=== PATIENT | female | born 1960 | race Two or more races ===

== ENCOUNTER 2019-01-16 22:40 | Observation (INO) ==
[2019-01-16] MEDS ORDERED: ASPIRIN ONE (23:08)
--- NOTE | 2019-01-16 23:10 | DR.GENAD ---
HPI Time Seen Time Seen by Provider: 01/16/19 23:10 PCP Primary Care Physician: CEDRIC CAMPBELL Complaint/Symptoms Chief Complaint Doctors Comments: Patient is a 59 year old [place] woman who presents with chest pain. While at rest patient states that she had chest pain and that is substernal radiating downward. She describes it as moderate to severe in pain. She states that it lasted for a duration of approximately 10 minutes and self-resolved . She has had similar pain in the past when she had a cardiac Cath. Her family does not the known the results of that study they stated she did not have stent, but they are unsure bc is was ~ 10 yr ago in a [facility] ( they dont know the name) The patient had an similar episode last night at 11:00 PM that last for 10 minutes also. The pain is not present when patient arrives at Ed. Patient denies shortness of breath, abdominal pain, nausea, vomiting, fevers, and or other symptoms. PMHx IDDM2, HTN, HLD, and ACS. Chief Complaint:: CHEST PAIN BEGAN YESTERDAY AFTERNOON; TODAY PATIENT CONTINUES TO COMPLAIN; PATIENT'S DIL REPORTS PATIENT BEING DIAPHORETIC. PATIENT SAYS SHE HURTS FROM THROAT DOWN TO CHEST. Self Treatment fo Chief Complaint: NO PRIOR TREATMENT Nurses notes reviewed Nurses Notes Review: Yes Source History Provided: Family Member Mode of Arrival Mode of Arrival: Ambulatory Timing Onset of Chief Complaint: 01/15/19 PMH PMH Past Medical History: Yes Past Medical History: Coronary Artery Disease, Dyslipidemia, GERD and Hypertension Past Surgical History: No Family History History of Family Medical Conditions: No Social History Alcohol Use: None Do you use any recreational Drugs:: No Lives Where: Home infectious screening In the last 2 months have you had wt loss of >10#?: NO Have you had fever, night sweats or hemotysis?: No Have you traveled outside the country in the last 6 months?: No Isolation: Standard ROS Review of Systems Constitutional: Diaphoresis (resolved ) Eyes: No Symptoms Reported ENTM: No Symptoms Reported Respiratoy: No Symptoms Reported Cardiovascular: Chest Pain (resolved ) Gastrointestinal/Abdominal: No Symptoms Reported Genitourinary: No Symptoms Reported Neurological: No Symptoms Reported Musculoskeletal: No Symptoms Reported Integumentary: No Symptoms Reported Hematologic/Lymphatic: No Symptoms Reported Endocrine: No Symptoms Reported Psychiatric: No Symptoms Reported All Other Systems: Reviewed and Negative PE Vital Signs Vitals: Temperature 97.5 F Pulse Rate [Apical] 60 Pulse Rate 85 Respiratory Rate 22 Blood Pressure [Left Arm] 161/70 Blood Pressure 186/81 O2 Sat by Pulse Oximetry 96 General Limitations: No Limitations General Appearance: Alert and In No Apparent Distress Head Head Exam: Normal Inspection, Atraumatic and Normocephalic Eyes Eye exam: Normal Appearance and EOMI ENT ENT Exam: Normal Exam, Normal Oropharynx, Normal External Ear Exam and Mucous Membranes Moist Nose Exam: Normal Nose Exam Mouth Exam: Normal Inspection Throat Exam: Normal Inspection Neck Neck Exam: Normal Inspection and Full ROM Chest Chest Inspection: Normal Inspection and Symmetric Chest Wall Rise Respiratory Respiratory Exam: Normal Lung Sounds Bilat, Accessory Muscle Use and Chest Wall Tenderness Respiratory Exam: Bilateral: Clear to Auscultation Cardiovascular Cardiovascular Exam: Regular Rate and Normal Rhythm Abdominal Exam Abdominal Exam: Normal Inspection, Normal Bowel Sounds and Soft Extremities Extremities Exam: Normal Inspection and Full ROM Neurologic Neurological Exam: Alert and Oriented X3 Psychiatric Psychiatric Exam: Normal Affect and Normal Mood Skin Skin Exam: Warm, Dry, Intact and Normal Color MDM Additional Information Additional Information Obtained From: Family Differential Diagnosis Differential Diagnosis: ACS VS [place] vs Costochondritis vs chest wall pain COURSE Treatment Treatment: Patient is a 59 year old female with unstable angina with several cardiac risk factors IDDM/HLD/uncontrolled HTN/ACS. This is the second episode in 2 days that occurred at rest. Patient has cardiac history with catherization approximately 10 years ago the up come is unknown per patient and family. Patient takes daily aspirin, so aspirin was held. Patient's blood pressure was in the 180sbp on arrival, it improved. Pt admitted for ACS r/o. Elevated WBC likely reactive, afebrile not symptomatic, will treat in w/ AM labs. CXR discussed with family pt has no CHF symptoms. Reevaluation 1st: Unchanged (00:18 pt stable no pain) 2nd: Improved (BP decreased pt stable in no pain, 2:36 ) 3rd: Unchanged (03:03 plan discussed with family and pt about admission) Consultation Called: 02:45 Call Returned: 02:45 Consultation Comments: Dr Daigle accepted admission after discussion of case. Education/Counseling Education/Counseling: Patient, Family, Education and Counseling Educated On: Treatment, Diagnosis, Prognosis and Needs for Follow Up ROR Labs Reviewed Laboratory Results Reviewed?: Yes Result Diagrams: 01/16/19 23:25 01/16/19 23:25 Laboratory: WBC 10.3 X10^3/uL (3.6-10.0) H 01/16/19 23:25 RBC 4.93 X10^6/uL (3.5-5.4) 01/16/19 23:25 Hgb 10.5 g/dL (12.0-16.0) L 01/16/19 23: Hct 34.2 % (36.0-47.0) L 01/16/19 23:25 MCV 69.3 fL (80.0-100.0) L 01/16/19 23:25 MCH 21.4 pg (27.0-34.0) L 01/16/19 23: MCHC 30.8 g/dL (33.0-35.0) L 01/16/19 23: RDW 18.9 % (11.6-16.5) H 01/16/19 23: Plt Count 270 X10^3/uL (150.0-450.0) 01/16/19 23:25 Plt Count Comment Adequate (ADEQUATE) 01/16/19 23: MPV 9.5 fL (7.4-11.0) 01/16/19 23:25 Neut % (Auto) 34.9 % (42.0-75.0) L 01/16/19 23: Lymph % (Auto) 45.2 % (21.0-51.0) 01/16/19 23:25 [place] % (Auto) 8.8 % (0.0-13.0) 01/16/19 23:25 Eos % (Auto) 10.1 % (0.9-2.9) H 01/16/19 23:25 Baso % (Auto) 1.0 % (0.2-1.0) 01/16/19 23:25 Neut # (Auto) 3.6 x10^3/uL (2.2-4.8) 01/16/19 23:25 Lymph # (Auto) 4.7 X10^3/uL (1.3-2.9) H 01/16/19 23:25 [place] # (Auto) 0.9 x10^3/uL (0.3-0.8) H 01/16/19 23:25 Eos # (Auto) 1.0 x10^3/uL (0.0-0.2) H 01/16/19 23:25 Baso # (Auto) 0.1 X10^3/uL (0.0-0.1) 01/16/19 23:25 Absolute Nucleated RBC 0.1 /100WBC 01/16/19 23:25 Plt Morphology Comment Normal (NORMAL) 01/16/19 23:25 RBC Morphology Abnormal (NORMAL) A 01/16/19 23:25 Hypochromasia 2+ A 01/16/19 23:25 Anisocytosis Slight A 01/16/19 23:25 Microcytosis 1+ A 01/16/19 23:25 Sodium 138 mmol/L (136-145) 01/16/19 23:25 Corrected Sodium 141 mmol/L (136-145) 01/16/19 23:25 Potassium 3.9 mmol/L (3.5-5.1) 01/16/19 23:25 Chloride 102 mmol/L (98-107) 01/16/19 23:25 Carbon Dioxide 25.6 mmol/L (21-32) 01/16/19 23:25 BUN 9 mg/dL (7-18) 01/16/19 23:25 Creatinine 0.86 mg/dL (0.55-1.02) 01/16/19 23:25 Est GFR (MDRD) Af Amer > 60 (>60) 01/16/19 23:25 Est GFR (MDRD) Non-Af > 60 (>60) 01/16/19 23:25 Glucose 226 mg/dL (65-99) H 01/16/19 23:25 Calcium 9.4 mg/dL (8.5-10.1) 01/16/19 23:25 Corrected Calcium TNP 01/16/19 23:25 Total Bilirubin 0.40 mg/dL (0.2-1.0) 01/16/19 23:25 AST 21 Units/L (15-37) 01/16/19 23:25 ALT 33 Units/L (12-78) 01/16/19 23:25 Alkaline Phosphatase 106 Units/L (46-116) 01/16/19 23:25 Creatine Kinase 101 Units/L (26-192) 01/17/19 01:40 CK-MB (CK-2) 1.3 ng/mL (0-4.0) 01/17/19 01:40 CK/CKMB % Calc 1.3 % (<4) 01/17/19 01:40 Troponin I < 0.02 ng/mL (0-1.5) 01/17/19 01:40 Total Protein 7.7 g/dL (6.4-8.2) 01/16/19 23:25 Albumin 3.9 g/dL (3.4-5.0) 01/16/19 23:25 Globulin 3.8 g/dL (2.5-4.5) 01/16/19 23:25 Albumin/Globulin Ratio 1.0 Ratio (1.1-2.1) L 01/16/19 23:25 Specimen Type Clean catch urine 01/16/19 23:10 Urine Color Pale yellow (YELLOW) 01/16/19 23:10 Urine Appearance Clear (CLEAR) 01/16/19 23:10 Urine pH 5.0 (5.0 - 8.0) 01/16/19 23:10 Ur Specific [place] 1.010 (1.000-1.030) 01/16/19 23:10 Urine Protein Negative (NEGATIVE) 01/16/19 23:10 Urine Glucose (UA) 4+ (NEGATIVE) 01/16/19 23:10 Urine Ketones Negative (NEGATIVE) 01/16/19 23:10 Urine Occult Blood Negative (NEGATIVE) 01/16/19 23:10 Urine Nitrite Negative (NEGATIVE) 01/16/19 23:10 Urine Bilirubin Negative (NEGATIVE) 01/16/19 23:10 Urine Urobilinogen Normal (NORMAL) 01/16/19 23:10 Ur Leukocyte Esterase Negative (NEGATIVE) 01/16/19 23:10 Other Results Comments: Name: LUPE GONZALEZDamianct#: [id number]: [id number] : 1960ex: FLocation: ER Order Number(s): [id number](s):CHEST, 1 VIEW Ordering Physician: Rubio Menjivar Primary Care: GERMAIN SMART Service Date: 01/16/19 Service Time: 2304 Chest AP portable Indication: Chest pain Findings: There is no pneumothorax, effusion or dense consolidation. Heart size is prominent with increased interstitial markings. Impression: Position limited and habitus limited study shows prominent heart size and mildly increased interstitial markings. Correlate clinically for signs of CHF. Reported By: second EKG read by Dr. Menjivar @ 2:20 rhythm: sinus axis: normal no hypertrophy no significant ischemia disease seen or changes compared to 23:30 EKG XRAY XRAY Interpreted by: Both EKG Rate: 80 (wandering baseline, read by Dr. Menjivar, no prior available to compare to ) [place]: Normal Rhythm: NSR (prolong IN ) Block: None Hypertrophy: LAE ST: Normal Opioid Opioid Risk Tool Total: 0 Total Score Risk Category: Low Risk Copyright: Cristobal RADFORD predicting aberrant behaviors Diagnosis Discharge Problem: Chest pain, Angina pectoris, unstable Narrative Support Text: Admitted to hospitalist Dr. Daigle @ 03:00 Instructions Forms: Excuse From Work Patient Portal
--- NOTE | 2019-01-16 23:17 | RAD ---
Chest AP portable Indication: Chest pain Findings: There is no pneumothorax, effusion or dense consolidation. Heart size is prominent with increased interstitial markings. Impression: Position limited and habitus limited study shows prominent heart size and mildly increased interstitial markings. Correlate clinically for signs of CHF. Reported By:
[2019-01-16 23:35] LABS: BASOPHILS # (AUTO) 0.1 X10^3/uL (0.0-0.1); EOSINOPHILS % (AUTO) 10.1 % (0.9-2.9); HEMATOCRIT 34.2 % (36.0-47.0); HEMOGLOBIN 10.5 g/dL (12.0-16.0); LYMPHOCYTES # (AUTO) 4.7 X10^3/uL (1.3-2.9); LYMPHOCYTES % (AUTO) 45.2 % (21.0-51.0); MEAN CORPUSCULAR HEMOGLOBIN 21.4 pg (27.0-34.0); MEAN CORPUSCULAR HGB CONC 30.8 g/dL (33.0-35.0); MEAN CORPUSCULAR VOLUME 69.3 fL (80.0-100.0); MEAN PLATELET VOLUME 9.5 fL (7.4-11.0); MONOCYTES # (AUTO) 0.9 x10^3/uL (0.3-0.8); MONOCYTES % (AUTO) 8.8 % (0.0-13.0); NEUTROPHILS # (AUTO) 3.6 x10^3/uL (2.2-4.8); NEUTROPHILS % (AUTO) 34.9 % (42.0-75.0); PLATELET COUNT 270 X10^3/uL (150.0-450.0); RED BLOOD COUNT 4.93 X10^6/uL (3.5-5.4); RED CELL DISTRIBUTION WIDTH 18.9 % (11.6-16.5); WHITE BLOOD COUNT 10.3 X10^3/uL (3.6-10.0)
[2019-01-16 23:41] LABS: ANISOCYTOSIS SLIGHT; HYPOCHROMASIA 2+; MICROCYTOSIS 1+; PLATELET MORPHOLOGY COMMENT NORMAL (NORMAL)
[2019-01-16 23:48] LABS: BILIRUBIN,URINE NEGATIVE (NEGATIVE); BLOOD/HEMOGLOBIN,URINE NEGATIVE (NEGATIVE); GLUCOSE, URINE 4+ (NEGATIVE); KETONES,URINE NEGATIVE (NEGATIVE); LEUKOCYTE ESTERASE ,URINE NEGATIVE (NEGATIVE); NITRITES,URINE NEGATIVE (NEGATIVE); PROTEIN,URINE NEGATIVE (NEGATIVE); UROBILINOGEN,URINE NORMAL (NORMAL)
[2019-01-16 23:49] LABS: APPEARANCE,URINE CLEAR (CLEAR); COLOR,URINE PALE YELLOW (YELLOW)
[2019-01-16] MEDS ORDERED: ASPIRIN PO ONE (23:50)
[2019-01-16 23:52] LABS: BLOOD UREA NITROGEN 9 mg/dL (7-18); CALCIUM 9.4 mg/dL (8.5-10.1); CARBON DIOXIDE 25.6 mmol/L (21-32); CHLORIDE 102 mmol/L (98-107); COR NA(FOR HYPERGLY) 141 mmol/L (136-145); CREATININE 0.86 mg/dL (0.55-1.02); SODIUM 138 mmol/L (136-145); TROPONIN I < 0.02 ng/mL (0-1.5); eGFR NON BLACK RACES > 60 (>60)
[2019-01-16 23:56] LABS: ALANINE AMINOTRANSFERASE 33 Units/L (12-78); ALBUMIN 3.9 g/dL (3.4-5.0); ALKALINE PHOSPHATASE 106 Units/L (46-116); ASPARTATE AMINO TRANSFERASE 21 Units/L (15-37); CKMB % 1.5 % (<4); CREATINE KINASE 105 Units/L (26-192); CREATINE KINASE MB 1.6 ng/mL (0-4.0); TOTAL PROTEIN 7.7 g/dL (6.4-8.2)
[2019-01-17] MEDS ORDERED: APRESOLINE INJ 20 MG VIAL IVP ONE (00:17)
[2019-01-17 02:07] LABS: CKMB % 1.3 % (<4); CREATINE KINASE 101 Units/L (26-192); CREATINE KINASE MB 1.3 ng/mL (0-4.0); TROPONIN I < 0.02 ng/mL (0-1.5)
[2019-01-17] MEDS ORDERED: NITROSTAT SL PRN (02:46)
[2019-01-17] MEDS ORDERED: MORPHINE SULFATE INJ 2 MG INJ IVP PRN (02:54)
[2019-01-17] MEDS ORDERED: APRESOLINE INJ 20 MG VIAL IVP PRN (02:54)
[2019-01-17] MEDS ORDERED: ZOFRAN INJ 4 MG VIAL IVP PRN (02:54)
[2019-01-17] MEDS: NS 1000 ML 1,000 ML IV SCH ×2 (03:56→18:11)
[2019-01-17 05:25] VITALS: BMI 27.0
[2019-01-17] MEDS ORDERED: HumuLIN R SUBCUT PRN (05:32)
[2019-01-17 05:35] LABS: BASOPHILS # (AUTO) 0.1 X10^3/uL (0.0-0.1); BASOPHILS % (AUTO) 0.9 % (0.2-1.0); EOSINOPHILS # (AUTO) 0.8 x10^3/uL (0.0-0.2); EOSINOPHILS % (AUTO) 9.6 % (0.9-2.9); HEMATOCRIT 32.7 % (36.0-47.0); HEMOGLOBIN 10.3 g/dL (12.0-16.0); LYMPHOCYTES # (AUTO) 4.1 X10^3/uL (1.3-2.9); LYMPHOCYTES % (AUTO) 46.8 % (21.0-51.0); MEAN CORPUSCULAR HEMOGLOBIN 21.8 pg (27.0-34.0); MEAN CORPUSCULAR HGB CONC 31.4 g/dL (33.0-35.0); MEAN CORPUSCULAR VOLUME 69.4 fL (80.0-100.0); MEAN PLATELET VOLUME 9.9 fL (7.4-11.0); MONOCYTES # (AUTO) 0.7 x10^3/uL (0.3-0.8); MONOCYTES % (AUTO) 8.3 % (0.0-13.0); NEUTROPHILS % (AUTO) 34.4 % (42.0-75.0); PLATELET COUNT 252 X10^3/uL (150.0-450.0); RED BLOOD COUNT 4.72 X10^6/uL (3.5-5.4); RED CELL DISTRIBUTION WIDTH 19.3 % (11.6-16.5); WHITE BLOOD COUNT 8.8 X10^3/uL (3.6-10.0)
[2019-01-17 05:40] LABS: ALANINE AMINOTRANSFERASE 32 Units/L (12-78); ALBUMIN 3.6 g/dL (3.4-5.0); ALKALINE PHOSPHATASE 90 Units/L (46-116); ASPARTATE AMINO TRANSFERASE 21 Units/L (15-37); BLOOD UREA NITROGEN 9 mg/dL (7-18); CALCIUM 9.3 mg/dL (8.5-10.1); CARBON DIOXIDE 25.8 mmol/L (21-32); CHLORIDE 106 mmol/L (98-107); CHOL/HDL RATIO 3.5 (0.0-5.0); CHOLESTEROL 138 mg/dL (0-200); COR NA(FOR HYPERGLY) 143 mmol/L (136-145); CREATININE 0.69 mg/dL (0.55-1.02); HDL CHOLESTEROL 39 mg/dL (40-60); SODIUM 143 mmol/L (136-145); TOTAL PROTEIN 7.3 g/dL (6.4-8.2); TRIGLYCERIDES 105 mg/dL (0-150); eGFR NON BLACK RACES > 60 (>60)
[2019-01-17 05:47] LABS: CKMB % 1.2 % (<4); CREATINE KINASE MB 1.2 ng/mL (0-4.0); TROPONIN I 0.02 ng/mL (0-1.5)
[2019-01-17 05:48] LABS: ANISOCYTOSIS SLIGHT; HYPOCHROMASIA 2+; MICROCYTOSIS 1+; PLATELET MORPHOLOGY COMMENT NORMAL (NORMAL)
[2019-01-17] MEDS: LOVENOX INJ 40 MG SYR SC SCH (08:42)
[2019-01-17] MEDS ORDERED: ASPIRIN PO SCH (09:00)
[2019-01-17] MEDS ORDERED: HumuLIN R SC PRN (10:22)
--- NOTE | 2019-01-17 10:46 | DR.H&P ---
H&P History & Physical for Day of: H&P Date: 01/17/19 Chief Complaint Chief Complaint: chest pain Allergies Allergies Allergy/AdvReac Type Severity Reaction Status Date / Time No Known Drug Allergies Allergy Verified 01/16/19 23:30 History of Present Illness History of Present Illness: Ms. Camarena is a 59y/o female with a PMH of CAD, Type 2 DM, HTN, HLD and GERD presents with upper chest and neck pain that started 2 days ago. She had 2 episodes prior to coming to the ED. First night she was watching TV and felt sudden onset pain in the neck area and going towards the chest associated with diaphoresis. She thought it was indigestion so started walking around the house and also on the treadmill which worsened the pain. Her pain resolved with rest and this episode lasted 10 mins. Second episode was last night which was similar, started at rest and resolved by sitting in 10 mins. She was diaphoretic. No associated SOB, N/V/D or abdominal pain. She had chest pain like this 10 years ago and had a LHC in [place]. No stents were placed. No recent cardiac work-up. Seen by PCP one month ago with no medication changes. BP at home yesterday was 182/110, HR: 122. Daughter gave her metoprolol. She has been compliant with her medications. Her diabetes is well-controlled. Denies having any edema, orthopnea or SOB at rest or exertion. ER work-up - EKG: no acute ST changes, trop (-) - received asa, hydralazine - CXR: cardiomegaly, interstitial markings. Past Medical History Past Medical History: Coronary Artery Disease, Dyslipidemia, GERD and Hypertension Past Surgical History Surgical History: Family History Family Medical History: Diabetes Mellitus, Coronary Artery Disease and Hypertension Social History Does patient currently use any type of tobacco product: No Have you used tobacco products in the last 12 months: No Does any household member use tobacco: No Alcohol Use: None Drug Use: None Prescription drug monitoring program results: PDMP was not reviewed Medications Home Medications: No Known Drug Allergies Allergy (Verified 01/16/19 23:30) CONTINUE taking the following medications aspirin [Aspir-81] 81 mg PO DAILY 01/17/19 [History] dapagliflozin-metformin [Xigduo XR] 5 - 1,000 tab PO DAILY 01/17/19 [History] glipizide 10 mg PO BID 01/17/19 [History] insulin glargine [Lantus U-100 Insulin] 14 unit SUBCUT BID 01/17/19 [History] losartan 25 mg PO DAILY 01/17/19 [History] metoprolol tartrate 25 mg PO DAILY 01/17/19 [History] pravastatin 40 mg PO DAILY 01/17/19 [History] ranitidine HCl 150 mg PO BID 01/17/19 [History] Labs Result Diagrams: 01/17/19 05:09 01/17/19 05:09 Labs: Laboratory WBC 8.8 X10^3/uL (3.6-10.0) 01/17/19 05:09 RBC 4.72 X10^6/uL (3.5-5.4) 01/17/19 05:09 Hgb 10.3 g/dL (12.0-16.0) L 01/17/19 05:09 Hct 32.7 % (36.0-47.0) L 01/17/19 05:09 MCV 69.4 fL (80.0-100.0) L 01/17/19 05:09 MCH 21.8 pg (27.0-34.0) L 01/17/19 05:09 MCHC 31.4 g/dL (33.0-35.0) L 01/17/19 05:09 RDW 19.3 % (11.6-16.5) H 01/17/19 05:09 Plt Count 252 X10^3/uL (150.0-450.0) 01/17/19 05:09 Plt Count Comment Adequate (ADEQUATE) 01/17/19 05:09 MPV 9.9 fL (7.4-11.0) 01/17/19 05:09 Neut % (Auto) 34.4 % (42.0-75.0) L 01/17/19 05:09 Lymph % (Auto) 46.8 % (21.0-51.0) 01/17/19 05:09 [place] % (Auto) 8.3 % (0.0-13.0) 01/17/19 05:09 Eos % (Auto) 9.6 % (0.9-2.9) H 01/17/19 05:09 Baso % (Auto) 0.9 % (0.2-1.0) 01/17/19 05:09 Neut # (Auto) 3.0 x10^3/uL (2.2-4.8) 01/17/19 05:09 Lymph # (Auto) 4.1 X10^3/uL (1.3-2.9) H 01/17/19 05:09 [place] # (Auto) 0.7 x10^3/uL (0.3-0.8) 01/17/19 05:09 Eos # (Auto) 0.8 x10^3/uL (0.0-0.2) H 01/17/19 05:09 Baso # (Auto) 0.1 X10^3/uL (0.0-0.1) 01/17/19 05:09 Absolute Nucleated RBC 0.0 /100WBC 01/17/19 05:09 Plt Morphology Comment Normal (NORMAL) 01/17/19 05:09 RBC Morphology Abnormal (NORMAL) A 01/17/19 05:09 Hypochromasia 2+ A 01/17/19 05:09 Anisocytosis Slight A 01/17/19 05:09 Microcytosis 1+ A 01/17/19 05:09 PT 13.0 SECONDS (11.8-14.3) 01/17/19 05:09 INR Target Range - 01/17/19 05:09 INR 1.02 (0.8-1.3) 01/17/19 05:09 APTT 26.3 SECONDS (22.9-36.5) 01/17/19 05:09 PTT Comment - 01/17/19 05:09 Sodium 143 mmol/L (136-145) 01/17/19 05:09 Corrected Sodium 143 mmol/L (136-145) 01/17/19 05:09 Potassium 3.7 mmol/L (3.5-5.1) 01/17/19 05:09 Chloride 106 mmol/L (98-107) 01/17/19 05:09 Carbon Dioxide 25.8 mmol/L (21-32) 01/17/19 05:09 BUN 9 mg/dL (7-18) 01/17/19 05:09 Creatinine 0.69 mg/dL (0.55-1.02) 01/17/19 05:09 Est GFR (MDRD) Af Amer > 60 (>60) 01/17/19 05:09 Est GFR (MDRD) Non-Af > 60 (>60) 01/17/19 05:09 Glucose 114 mg/dL (65-99) H 01/17/19 05:09 POC Glucose (mg/dL) 95 mg/dL (65-99) 01/17/19 05:55 Calcium 9.3 mg/dL (8.5-10.1) 01/17/19 05:09 Corrected Calcium TNP 01/17/19 05:09 Total Bilirubin 0.40 mg/dL (0.2-1.0) 01/17/19 05:09 AST 21 Units/L (15-37) 01/17/19 05:09 ALT 32 Units/L (12-78) 01/17/19 05:09 Alkaline Phosphatase 90 Units/L (46-116) 01/17/19 05:09 Creatine Kinase 97 Units/L (26-192) 01/17/19 05:09 Creatine Kinase Cancelled 01/17/19 05:09 CK-MB (CK-2) 1.2 ng/mL (0-4.0) 01/17/19 05:09 CK-MB (CK-2) Cancelled 01/17/19 05:09 CK/CKMB % Calc 1.2 % (<4) 01/17/19 05:09 CK/CKMB % Calc Cancelled 01/17/19 05:09 Troponin I 0.02 ng/mL (0-1.5) 01/17/19 05:09 Troponin I Cancelled 01/17/19 05:09 Total Protein 7.3 g/dL (6.4-8.2) 01/17/19 05:09 Albumin 3.6 g/dL (3.4-5.0) 01/17/19 05:09 Globulin 3.7 g/dL (2.5-4.5) 01/17/19 05:09 Albumin/Globulin Ratio 1.0 Ratio (1.1-2.1) L 01/17/19 05:09 Triglycerides 105 mg/dL (0-150) 01/17/19 05:09 Cholesterol 138 mg/dL (0-200) 01/17/19 05:09 LDL Cholesterol, Calc 78 mg/dL (0-100) 01/17/19 05:09 HDL Cholesterol 39 mg/dL (40-60) L 01/17/19 05:09 Cholesterol/HDL Ratio 3.5 (0.0-5.0) 01/17/19 05:09 Specimen Type Clean catch urine 01/16/19 23:10 Urine Color Pale yellow (YELLOW) 01/16/19 23:10 Urine Appearance Clear (CLEAR) 01/16/19 23:10 Urine pH 5.0 (5.0 - 8.0) 01/16/19 23:10 Ur Specific [place] 1.010 (1.000-1.030) 01/16/19 23:10 Urine Protein Negative (NEGATIVE) 01/16/19 23:10 Urine Glucose (UA) 4+ (NEGATIVE) 01/16/19 23:10 Urine Ketones Negative (NEGATIVE) 01/16/19 23:10 Urine Occult Blood Negative (NEGATIVE) 01/16/19 23:10 Urine Nitrite Negative (NEGATIVE) 01/16/19 23:10 Urine Bilirubin Negative (NEGATIVE) 01/16/19 23:10 Urine Urobilinogen Normal (NORMAL) 01/16/19 23:10 Ur Leukocyte Esterase Negative (NEGATIVE) 01/16/19 23:10 Review of Systems Constitutional: Chills and Sweats; denies Fever, Weakness and Malaise Eyes: No Symptoms Reported ENT: No Symptoms Reported Respiratory: denies Cough, Shortness of Breath and SOB with Excertion Cardiovascular: Chest Pain; denies Palpitations, Edema and Light Headedness Gastrointestinal: denies Nausea, Vomiting, Abdominal Pain, Diarrhea and Constipation Genitourinary: No Symptoms Reported Musculoskeletal: Neck Pain Skin: No Symptoms Reported Neurological: denies Numbness, Incoordination, Confusion and Seizures Physical Exam Vital Signs: Temperature 98.1 F Pulse Rate [Apical] 76 Pulse Rate 85 Respiratory Rate 18 Blood Pressure [Left Arm] 130/61 Blood Pressure 186/81 O2 Sat by Pulse Oximetry 98 Oriented: Normal Nose: Normal Throat: Normal Respiratory: Clear Throughout Cardiovascular: Normal Auscultation: Bowel Sounds: Normal Palpation: Normal Tenderness: Normal Skin: Normal Musculoskeletal: Normal Psychiatric: Normal Mood Description: Calm Affect: Normal Speech Pattern: Clear and Appropriate Assessment/Plan (1) Chest pain: Qualifiers: Chest pain type: chest pain due to myocardial ischemia Ischemic chest pain type: unstable angina pectoris Qualified Code(s): I20.0 - Unstable angina Status: Acute Plan: r/o ACS, troponins x 3 (-) , EKG with non-specific ST changes CXR: cardiomegaly, no signs of fluid overload on exam Had one episode of chest pain in the ED as ambulating, resolved with sitting. No further episodes since then. - will check another troponin, BNP, TSH, ECHO - stress test cannot be done inpatient due to equipment not working at this time. - resume asa, statin, metoprolol tartrate and losartan - nitro prn for chest pain - outpatient stress test (2) Diabetes: Qualifiers: Diabetes mellitus type: type 2 Diabetes mellitus correction insulin use: with correction use Diabetes mellitus complication status: without complication Qualified Code(s): E11.9 - Type 2 diabetes mellitus without complications; Z79.4 - met[place] (current) use of insulin Status: Acute Plan: will resume lantus 14 units BID, add SSI hold oral hypoglycemics while inpatient (3) CAD (coronary artery disease): Qualifiers: Coronary Disease-Associated Artery/Lesion type: unspecified vessel or lesion type [place] vs. transplanted heart: torres [place]inez heart Associated angina: with unspecified angina Qualified Code(s): I25.119 - Atherosclerotic heart disease of [place] coronary artery with unspecified angina pectoris Status: Acute Plan: hx of [facility] over 10 years ago, no further cardiac work up done continue home medications (4) Microcytic anemia: Status: Acute Plan: Hgb: 10.3, MCV 69 will get an anemia panel (5) Hypertension: Qualifiers: Hypertension type: essential hypertension Qualified Code(s): I10 - Essential (primary) hypertension Status: Acute Plan: elevated on admission, resume home meds (6) HLD (hyperlipidemia): Qualifiers: Hyperlipidemia type: unspecified Qualified Code(s): E78.5 - Hyperlipidemia, unspecified Status: Acute Plan: Continue statin
[2019-01-17 11:38] LABS: CKMB % 1.1 % (<4); CREATINE KINASE 92 Units/L (26-192); CREATINE KINASE MB < 1.0 ng/mL (0-4.0); TROPONIN I < 0.02 ng/mL (0-1.5)
[2019-01-17 11:39] LABS: FREE T4 (FREE THYROXINE) 1.19 ng/dL (0.76-1.46); TSH (3RD GENERATION) 2.409 uIU/mL (0.358-3.74)
[2019-01-17 11:55] LABS: IRON 26 ug/dL (50-175)
[2019-01-17] MEDS: COZAAR PO SCH (12:34)
[2019-01-17] MEDS: PRAVACHOL PO SCH (12:35)
[2019-01-17] MEDS: LOPRESSOR TAB 25 MG PO SCH (12:35)
[2019-01-17] MEDS: FERROUS GLUCONATE PO SCH (16:52)
[2019-01-17] MEDS: MIRALAX POWDER (1 DOSE 17 G) PO SCH ×2 (17:11→20:30)
[2019-01-17] MEDS ORDERED: SNACK - Diabetic Appropriate PO SCH ×2 (20:00)
[2019-01-17] MEDS: LANTUS SC SCH (20:28)
[2019-01-17] MEDS: PEPCID TAB 20 MG PO SCH (20:31)
[2019-01-18] MEDS: NS 1000 ML 1,000 ML IV SCH (05:50)
[2019-01-18] MEDS: FERROUS GLUCONATE PO SCH (06:14)
[2019-01-18 06:35] LABS: BASOPHILS # (AUTO) 0.1 X10^3/uL (0.0-0.1); BASOPHILS % (AUTO) 1.2 % (0.2-1.0); EOSINOPHILS # (AUTO) 0.8 x10^3/uL (0.0-0.2); EOSINOPHILS % (AUTO) 9.4 % (0.9-2.9); HEMATOCRIT 33.8 % (36.0-47.0); HEMOGLOBIN 10.5 g/dL (12.0-16.0); LYMPHOCYTES % (AUTO) 47.8 % (21.0-51.0); MEAN CORPUSCULAR HEMOGLOBIN 21.7 pg (27.0-34.0); MEAN CORPUSCULAR HGB CONC 31.1 g/dL (33.0-35.0); MEAN CORPUSCULAR VOLUME 69.7 fL (80.0-100.0); MEAN PLATELET VOLUME 9.9 fL (7.4-11.0); MONOCYTES # (AUTO) 0.9 x10^3/uL (0.3-0.8); MONOCYTES % (AUTO) 10.9 % (0.0-13.0); NEUTROPHILS # (AUTO) 2.6 x10^3/uL (2.2-4.8); NEUTROPHILS % (AUTO) 30.7 % (42.0-75.0); PLATELET COUNT 245 X10^3/uL (150.0-450.0); RED BLOOD COUNT 4.85 X10^6/uL (3.5-5.4); RED CELL DISTRIBUTION WIDTH 18.6 % (11.6-16.5); WHITE BLOOD COUNT 8.4 X10^3/uL (3.6-10.0)
[2019-01-18 06:45] LABS: ALANINE AMINOTRANSFERASE 35 Units/L (12-78); ALBUMIN 3.7 g/dL (3.4-5.0); ALKALINE PHOSPHATASE 92 Units/L (46-116); ASPARTATE AMINO TRANSFERASE 32 Units/L (15-37); BLOOD UREA NITROGEN 8 mg/dL (7-18); CHLORIDE 106 mmol/L (98-107); COR NA(FOR HYPERGLY) 142 mmol/L (136-145); CREATININE 0.73 mg/dL (0.55-1.02); SODIUM 141 mmol/L (136-145); TOTAL PROTEIN 7.3 g/dL (6.4-8.2); eGFR NON BLACK RACES > 60 (>60)
[2019-01-18 07:09] LABS: PLATELET MORPHOLOGY COMMENT NORMAL (NORMAL)
[2019-01-18 07:10] LABS: HYPOCHROMASIA 2+; MICROCYTOSIS 1+
[2019-01-18] MEDS ORDERED: ASPIRIN EC 81 MG PO SCH (09:00)
[2019-01-18] MEDS: LOVENOX INJ 40 MG SYR SC SCH (09:15)
[2019-01-18] MEDS: PEPCID TAB 20 MG PO SCH (09:16)
[2019-01-18] MEDS: LOPRESSOR TAB 25 MG PO SCH (09:16)
[2019-01-18] MEDS: COZAAR PO SCH (09:16)
[2019-01-18] MEDS: PRAVACHOL PO SCH (09:17)
[2019-01-18] MEDS: LANTUS SC SCH (09:18)
--- NOTE | 2019-01-18 09:42 | W.DIS.FURT ---
Summary of Discharge Discharge Summary of Date Date of Exam: 01/18/19 Admission Date Date of Admission: 01/17/19 Admission Diagnosis Patient Problems (Updated 01/18/19 @ 09:41 by Elana Daigle) Iron deficiency anemia (Acute) D50.9 Microcytic anemia (Acute) D50.9 HLD (hyperlipidemia) (Chronic) E78.5 Hypertension (Chronic) I10 CAD (coronary artery disease) (Chronic) I25.10 Diabetes (Chronic) E11.9 Chest pain (Acute) R07.9 Hospital Course: Ms. Camarena is a 59y/o female with a PMH of CAD, HTN, HLD, GERD and Type 2 DM presented with chest pain. She had 2 episodes at home, occurred at rest, worse with exertion with associated diaphoresis. Both episodes lasted less than 10 mins and resolved with sitting. Denies SOB, N/V/D or abdominal pain, no associated syncopal symptoms. She had a cath over 10 years ago in [place], did not required intervention. She has not had any cardiac work-up since then. Patient had no acute ST changes on EKG, negative troponins on admission. She did have elevated SBP on admission which resolved after resuming home medications. She was admitted to rule out ACS. She was put on telemetry, no abnormal rhythm was noted. Repeat EKG did not show any specific ST changes, troponins x 3 (-). ECHO showed grade 1 diastolic dysfunction, EF 70%. TSH was normal, labs revealed iron deficiency anemia. She did not have any chest pain during the admission. She was stable for discharge. She will follow up with cardiology within one week for outpatient stress test. Patient and family instructed to bring patient to ED if has chest pain again. Avoid exertional activities until seen by cardiology. Continue home medications with the addition of iron supplements and nitroglycerin prn for chest pain. Follow up with PCP within one week. Family instructed to check blood pressure daily and if SBP < 90, hold losartan and metoprolol and re-check until improves prior to giving medications. Vital Signs: Vital Signs (72 hours) 01/16/19 22:45 01/16/19 23:15 01/16/19 23:30 Temperature 97.5 F L Pulse Rate 85 Pulse Rate [Apical] 79 80 Respiratory Rate 22 Blood Pressure 186/81 Blood Pressure [Left Arm] 199/87 189/97 O2 Sat by Pulse Oximetry 97 97 01/17/19 00:00 01/17/19 00:30 01/17/19 01:00 Temperature Pulse Rate Pulse Rate [Apical] 60 63 59 L Respiratory Rate Blood Pressure Blood Pressure [Left Arm] 136/61 141/63 155/65 O2 Sat by Pulse Oximetry 96 95 96 01/17/19 01:30 01/17/19 04:00 01/17/19 08:00 Temperature 98.1 F 98.1 F Pulse Rate Pulse Rate [Apical] 60 73 76 Respiratory Rate 20 18 Blood Pressure Blood Pressure [Left Arm] 161/70 164/77 130/61 O2 Sat by Pulse Oximetry 96 97 98 01/17/19 12:00 01/17/19 16:00 01/17/19 20:00 Temperature 98.3 F 98.8 F 98.3 F Pulse Rate Pulse Rate [Apical] 82 96 H 69 Respiratory Rate 18 18 18 Blood Pressure Blood Pressure [Left Arm] 130/63 108/57 128/65 O2 Sat by Pulse Oximetry 97 93 L 95 01/18/19 00:00 01/18/19 04:00 Temperature 98.0 F 97.7 F Pulse Rate Pulse Rate [Apical] 77 63 Respiratory Rate 18 18 Blood Pressure Blood Pressure [Left Arm] 109/63 108/66 O2 Sat by Pulse Oximetry 95 98 Labs: Laboratory Last Values WBC 8.4 X10^3/uL (3.6-10.0) 01/18/19 05:28 RBC 4.85 X10^6/uL (3.5-5.4) 01/18/19 05:28 Hgb 10.5 g/dL (12.0-16.0) L 01/18/19 05:28 Hct 33.8 % (36.0-47.0) L 01/18/19 05:28 MCV 69.7 fL (80.0-100.0) L 01/18/19 05:28 MCH 21.7 pg (27.0-34.0) L 01/18/19 05:28 MCHC 31.1 g/dL (33.0-35.0) L 01/18/19 05:28 RDW 18.6 % (11.6-16.5) H 01/18/19 05:28 Plt Count 245 X10^3/uL (150.0-450.0) 01/18/19 05:28 Plt Count Comment Adequate (ADEQUATE) 01/18/19 05:28 MPV 9.9 fL (7.4-11.0) 01/18/19 05:28 Neut % (Auto) 30.7 % (42.0-75.0) L 01/18/19 05:28 Lymph % (Auto) 47.8 % (21.0-51.0) 01/18/19 05:28 Will % (Auto) 10.9 % (0.0-13.0) 01/18/19 05:28 Eos % (Auto) 9.4 % (0.9-2.9) H 01/18/19 05:28 Baso % (Auto) 1.2 % (0.2-1.0) H 01/18/19 05:28 Neut # (Auto) 2.6 x10^3/uL (2.2-4.8) 01/18/19 05:28 Lymph # (Auto) 4.0 X10^3/uL (1.3-2.9) H 01/18/19 05:28 Will # (Auto) 0.9 x10^3/uL (0.3-0.8) H 01/18/19 05:28 Eos # (Auto) 0.8 x10^3/uL (0.0-0.2) H 01/18/19 05:28 Baso # (Auto) 0.1 X10^3/uL (0.0-0.1) 01/18/19 05:28 Absolute Nucleated RBC 0.1 /100WBC 01/18/19 05:28 Plt Morphology Comment Normal (NORMAL) 01/18/19 05:28 RBC Morphology Abnormal (NORMAL) A 01/18/19 05:28 Hypochromasia 2+ A 01/18/19 05:28 Anisocytosis Slight A 01/17/19 05:09 Microcytosis 1+ A 01/18/19 05:28 PT 13.0 SECONDS (11.8-14.3) 01/17/19 05:09 INR Target Range - 01/17/19 05:09 INR 1.02 (0.8-1.3) 01/17/19 05:09 APTT 26.3 SECONDS (22.9-36.5) 01/17/19 05:09 PTT Comment - 01/17/19 05:09 Sodium 141 mmol/L (136-145) 01/18/19 05:28 Corrected Sodium 142 mmol/L (136-145) 01/18/19 05:28 Potassium 3.9 mmol/L (3.5-5.1) 01/18/19 05:28 Chloride 106 mmol/L (98-107) 01/18/19 05:28 Carbon Dioxide 26.0 mmol/L (21-32) 01/18/19 05:28 BUN 8 mg/dL (7-18) 01/18/19 05:28 Creatinine 0.73 mg/dL (0.55-1.02) 01/18/19 05:28 Est GFR (MDRD) Af Amer > 60 (>60) 01/18/19 05:28 Est GFR (MDRD) Non-Af > 60 (>60) 01/18/19 05:28 Glucose 125 mg/dL (65-99) H 01/18/19 05:28 POC Glucose (mg/dL) 138 mg/dL (65-99) H 01/18/19 05:39 Calcium 9.0 mg/dL (8.5-10.1) 01/18/19 05:28 Corrected Calcium TNP 01/18/19 05:28 Iron 26 ug/dL (50-175) L 01/17/19 11:03 Transferrin 408 mg/dL (202-364) H 01/17/19 11:03 Ferritin 16 ng/mL (8-252) 01/17/19 11:03 Total Bilirubin 0.50 mg/dL (0.2-1.0) 01/18/19 05:28 AST 32 Units/L (15-37) 01/18/19 05:28 ALT 35 Units/L (12-78) 01/18/19 05:28 Alkaline Phosphatase 92 Units/L (46-116) 01/18/19 05:28 Creatine Kinase 92 Units/L (26-192) 01/17/19 11:03 CK-MB (CK-2) < 1.0 ng/mL (0-4.0) 01/17/19 11:03 CK/CKMB % Calc 1.1 % (<4) 01/17/19 11:03 Troponin I < 0.02 ng/mL (0-1.5) 01/17/19 11:03 B-Natriuretic Peptide 62.9 pg/mL (0-79) 01/17/19 11:03 Total Protein 7.3 g/dL (6.4-8.2) 01/18/19 05:28 Albumin 3.7 g/dL (3.4-5.0) 01/18/19 05:28 Globulin 3.6 g/dL (2.5-4.5) 01/18/19 05:28 Albumin/Globulin Ratio 1.0 Ratio (1.1-2.1) L 01/18/19 05:28 Triglycerides 105 mg/dL (0-150) 01/17/19 05:09 Cholesterol 138 mg/dL (0-200) 01/17/19 05:09 LDL Cholesterol, Calc 78 mg/dL (0-100) 01/17/19 05:09 HDL Cholesterol 39 mg/dL (40-60) L 01/17/19 05:09 Cholesterol/HDL Ratio 3.5 (0.0-5.0) 01/17/19 05:09 Vitamin B12 > 2000 pg/mL (193-986) H 01/17/19 11:03 Folate 5.1 ng/mL (>8.6) L 01/17/19 11:03 Free T4 1.19 ng/dL (0.76-1.46) 01/17/19 11:03 TSH 3rd Generation 2.409 uIU/mL (0.358-3.74) 01/17/19 11:03 Specimen Type Clean catch urine 01/16/19 23:10 Urine Color Pale yellow (YELLOW) 01/16/19 23:10 Urine Appearance Clear (CLEAR) 01/16/19 23:10 Urine pH 5.0 (5.0 - 8.0) 01/16/19 23:10 Ur Specific Sunset 1.010 (1.000-1.030) 01/16/19 23:10 Urine Protein Negative (NEGATIVE) 01/16/19 23:10 Urine Glucose (UA) 4+ (NEGATIVE) 01/16/19 23:10 Urine Ketones Negative (NEGATIVE) 01/16/19 23:10 Urine Occult Blood Negative (NEGATIVE) 01/16/19 23:10 Urine Nitrite Negative (NEGATIVE) 01/16/19 23:10 Urine Bilirubin Negative (NEGATIVE) 01/16/19 23:10 Urine Urobilinogen Normal (NORMAL) 01/16/19 23:10 Ur Leukocyte Esterase Negative (NEGATIVE) 01/16/19 23:10 Reason For Visit: ACS R/O CHEST PAIN Discharge Date Discharge Date: 01/18/19 Discharge Diagnosis All Active Problems (Updated 01/18/19 @ 09:41 by Elana Daigle) Iron deficiency anemia (Acute) Microcytic anemia (Acute) HLD (hyperlipidemia) (Chronic) Hypertension (Chronic) CAD (coronary artery disease) (Chronic) Diabetes (Chronic) Chest pain (Acute) Plan of Treatment: Continue with present treatment and follow up plan. Pt is to keep follow up appointment as instructed and take medications as ordered. Discharge Medications Discharge Medications: No Known Drug Allergies Allergy (Verified 01/16/19 23:30) CONTINUE taking the following medications Lantus U-100 Insulin 14 unit SUBCUT BID 01/17/19 [History] Xigduo XR 5 - 1,000 tab PO DAILY 01/17/19 [History] aspirin [Aspir-81] 81 mg PO DAILY 01/17/19 [History] glipizide 10 mg PO BID 01/17/19 [History] losartan 25 mg PO DAILY 01/17/19 [History] metoprolol tartrate 25 mg PO DAILY 01/17/19 [History] pravastatin 40 mg PO DAILY 01/17/19 [History] ranitidine HCl 150 mg PO BID 01/17/19 [History] New Prescriptions ferrous gluconate 324 mg PO BIDWM 30 Days #60 tab 01/18/19 [Rx] nitroglycerin [Nitrostat] 0.4 mg SUBLINGUAL Q5MIN PRN 30 Days #30 tab 01/18/19 [Rx] Follow up and Referral Follow Up: 1 Week (PCP) 1 Week (Cardiology ) Discharge Disposition Discharge Disposition: home
[2019-01-18 11:04] VITALS: BP 117/60
[2019-01-18] MEDS ORDERED: AFLURIA II4 or FLUARIX II4 IM ONE (11:15)
== END 2019-01-18 12:15 | disposition home or self-care (01) ==
LOC: ER 22:44 → MED/SURG 22:44
PROVIDERS: ADMIT Internal Medicine; ATTEND Internal Medicine
DX: Z79.4 Long term (current) use of insulin; I10 Essential (primary) hypertension; K21.9 Gastro-esophageal reflux disease without esophagitis; R07.89 Other chest pain; D50.8 Other iron deficiency anemias; E78.5 Hyperlipidemia, unspecified; E11.65 Type 2 diabetes mellitus with hyperglycemia; R94.31 Abnormal electrocardiogram [ECG] [EKG]; I25.110 Atherosclerotic heart disease of native coronary artery with unstable angina pectoris
CPT/HCPCS: 36415; 71010; 71045; 80053; 80061; 81003; 82550; 82553; 82607; 82728; 82746; 83540; 83880; 84439; 84443; 84466; 84484; 85025; 85610; 85730; 93005; 93306; 94760; 96360; 96361; 96365; 96372; 99284; A4222; G0378; J1650; J1815; J7030